=== PATIENT | female | born 1995 | race Two or more races ===

== ENCOUNTER 2017-01-20 12:16 | Emergency (ER) | payer SELFPAY ==
--- NOTE | ~2017-01-20 | CT4 ---
[facility] A Service of [facility] RADIOLOGY TEXT RESULTS PATIENT: FRANC CARREAR LOCATION: [facility] : [birth year] UNIT #: [id number] AGE: [address]: Michael Weldon MD SEX: F ORDER DR: [id number] [facility] [address] [place], [place] [address] [id number] MR#: [id number] Acc #: [id number] NAME: FRANC CARRERA : 1995 SEX: F STUDY DATE/TIME: 01/20/2017 12:42 UNIT: [id number] ROOM: STUDY DESCRIPTION: CT Abd and Pelv Wo Cont Attending Physician: Michael Weldon M.D. Ordering Physician: [id number] Megan Weldon Primary Care Physician: Primary Care Physician No MEDICAL IMAGING REPORT This report is preliminary unless electronic signature is present EXAM CT abdomen and pelvis without contrast 01/20/2017 HISTORY 21-year-old female with left-sided abdominal pain for 2 days. Nausea and vomiting. COMPARISON None TECHNIQUE Helical scan performed through the abdomen and pelvis without oral or IV contrast. Coronal and sagittal reformatted images. This CT exam was performed with one or more of the following radiation dose reduction techniques: automatic exposure control, adjustment of mA and/or kV according to patient size, and iterative reconstruction. FINDINGS Examination is limited by motion artifact. Visualized lung bases are unremarkable. The liver, spleen, pancreas, gallbladder, both adrenal glands, and both kidneys are unremarkable allowing for lack of IV contrast. No urinary tract stones or hydronephrosis. Abdominal aorta normal in course and caliber. Small bowel is unremarkable without obstruction. Appendix is normal. Colon is unremarkable. No free fluid or free air. The urinary bladder, uterus, both adnexa are unremarkable. No free pelvic fluid. No acute bony abnormality. IMPRESSION 1. Mildly motion limited exam. 2. No acute abdominal or pelvic findings allowing for lack of IV [facility] A Service of [facility] RADIOLOGY TEXT RESULTS PATIENT: FRANC CARRERA LOCATION: [facility] : [birth year] UNIT #: [id number] AGE: [address]: Michael Weldon MD SEX: F ORDER DR: contrast. 3. Negative for urinary tract stones or hydronephrosis. 4. Normal appendix. Dictated by... Heri Bartlett M.D. THIS IS AN ELECTRONICALLY VERIFIED REPORT Heri Bartlett M.D. at 01/22/2017 7:45 AM RUBIA/juan TD: 01/21/2017 11:54 JOB #: [id number] MEDICAL IMAGING REPORT COPY
[2017-01-20 12:53] LABS: URINE SOURCE CLEAN CATCH
[2017-01-20 12:56] LABS: BASOPHIL% 0.2 % (0-2.5); EOSINOPHIL# 0.3 X10e3 (0-0.7); EOSINOPHIL% 5.3 % (0.0-7.0); HEMATOCRIT 37.1 % (35.0-45.0); LYMPHOCYTE# 1.1 X10e3 (1.0-3.5); LYMPHOCYTE% 16.8 % (17.0-45.0); MEAN CELL VOLUME 80.2 FL (83-96); MEAN CORPUSCULAR HGB CONC 32.3 g/dL (30-36); MONOCYTE# 0.9 X10e3 (0-1.0); MONOCYTE% 13.6 % (3.0-12.0); NEUTROPHIL# 4.1 X10e3 (1.5-7.1); NEUTROPHIL% 64.1 % (40-75); PLATELET COUNT 209 X10e3 (140-420); RED BLOOD COUNT 4.63 X10e (3.90-5.30); RED CELL DISTRIBUTION WIDTH 13.8 % (11.0-15.5); WHITE BLOOD COUNT 6.3 X10e3 (4.0-10.5)
[2017-01-20 12:57] LABS: URINE APPEARANCE CLOUDY; URINE BILIRUBIN NEG (NEG); URINE BLOOD 3+ (NEG); URINE COLOR DK YELLOW; URINE GLUCOSE NEG (NEG); URINE KETONE 3+ (NEG); URINE LEUKOCYTE ESTERASE TRACE (NEG); URINE NITRATE NEG (NEG); URINE PH 5.5 (5-8); URINE PROTEIN 1+ (NEG); URINE SPECIFIC GRAVITY 1.037 (1.003-1.035)
[2017-01-20 12:59] LABS: CULTURE INDICATED? YES; URBCS1 AUWI 100-200 /[HPF] (0-2); URINE BACTERIA AUWI 1+ (NEGATIVE); URINE SQUAMOUS EPITHELIAL CELL MOD /[HPF]
[2017-01-20 13:01] LABS: DIFF IND NO
[2017-01-20 13:20] LABS: ALBUMIN SERUM 3.5 g/dL (3.5-5.0); ALKALINE PHOSPHATASE 79 U/L (32-92); ALT (SGPT) 14 U/L (10-40); AMYLASE 24 U/L (0-46); AST (SGOT) 16 U/L (10-42); BILIRUBIN, DIRECT 0.1 mg/dL (0.0-0.2); BILIRUBIN,INDIRECT 0.5 mg/dL (0.0-0.9); BILIRUBIN,TOTAL 0.6 mg/dL (0.2-2.0); BLOOD UREA NITROGEN 10 mg/dL (9-23); BUN/CREATININE RATIO 14.28; CALCIUM SERUM 8.5 mg/dL (8.4-10.2); CARBON DIOXIDE 26 mmol/L (22-31); CHLORIDE 106 mmol/L (100-111); CREATININE SERUM 0.7 mg/dL (0.6-1.4); GLOM FILT RATE Estimated ABOVE60 mL/min (>60); GLUCOSE FASTING 106 mg/dL (70-110); LIPASE 13 U/L (22-51); POTASSIUM 3.3 mmol/L (3.5-5.1); PROTEIN TOTAL SERUM 7.1 g/dL (6.0-8.3); SODIUM 137 mmol/L (135-145)
== END 2017-01-20 13:50 | disposition home or self-care (01) ==
LOC: CED 12:16
PROVIDERS: Emergency Medicine
DX: N39.0 Urinary tract infection, site not specified (principal)
CPT/HCPCS: 36415; 74176; 80048; 80076; 81003; 82150; 83690; 84703; 85025; 87086; 96361; 96374; 96375; 99284; J2270; J2405